=== PATIENT | male | born 1965 | race Hispanic/Latino ===

== ENCOUNTER 2021-09-03 14:22 | Emergency (ER) | payer OTHER ==
--- NOTE | 2021-09-03 16:14 | EDPHYS ---
Physician Documentation [facility] Name: Kalin Carpenter Age: 56 yrs Sex: Male : 1965 Arrival Date: 09/03/2021 Time: 14:25 Bed 23 Private MD: ED Physician Liam Lopez HPI: 09/03 16:08 This 56 yrs old Male presents to ER via Ambulatory with complaints of Chills, maxim Fatigue, Headache. 16:08 The patient complains of pain to the top of head, forehead, left frontal area and left maxim side of the back of head. The patient describes the headache as aching, constant. Onset: The symptoms/episode began/occurred 4 day(s) ago. Associated signs and symptoms: Pertinent positives: fever. Severity of symptoms: At its worst the pain was mild, in the emergency department the pain is unchanged. Historical: - Allergies: 14:40 No Known Allergies; ll1 - PMHx: 14:40 Hypothyroidism; Hypercholesterolemia; ll1 - PSHx: 14:40 None; ll1 - Immunization history:: Client reports receiving the 2nd dose of the Covid vaccine. - Social history:: Smoking status: Patient denies any tobacco usage or history of. ROS: 16:09 Constitutional: Negative for fever, chills, and weight loss, Eyes: Negative for injury, maxim pain, redness, and discharge, ENT: Negative for injury, pain, and discharge, Neck: Negative for injury, pain, and swelling, Cardiovascular: Negative for chest pain, palpitations, and edema, Abdomen/GI: Negative for abdominal pain, nausea, vomiting, diarrhea, and constipation, Back: Negative for injury and pain, : Negative for injury, bleeding, discharge, and swelling, MS/Extremity: Negative for injury and deformity, Skin: Negative for injury, rash, and discoloration, Neuro: Negative for headache, weakness, numbness, tingling, and seizure, Psych: Negative for depression, anxiety, suicide ideation, homicidal ideation, and hallucinations, Allergy/Immunology: Negative for hives, rash, and allergies, Endocrine: Negative for neck swelling, polydipsia, polyuria, polyphagia, and marked weight changes, Hematologic/Lymphatic: Negative for swollen nodes, abnormal bleeding, and unusual bruising. 16:09 Respiratory: Positive for cough, with no reported sputum. Exam: 16:09 Constitutional: This is a well developed, well nourished patient who is awake, alert, maxim and in no acute distress. Head/Face: Normocephalic, atraumatic. Eyes: Pupils equal round and reactive to light, extra-ocular motions intact. Lids and lashes normal. Conjunctiva and sclera are non-icteric and not injected. Cornea within normal limits. Periorbital areas with no swelling, redness, or edema. ENT: Nares patent. No nasal discharge, no septal abnormalities noted. Tympanic membranes are normal and external auditory canals are clear. Oropharynx with no redness, swelling, or masses, exudates, or evidence of obstruction, uvula midline. Mucous membranes moist. Neck: Trachea midline, no thyromegaly or masses palpated, and no cervical lymphadenopathy. Supple, full range of motion without nuchal rigidity, or vertebral point tenderness. No Meningismus. Chest/axilla: Normal chest wall appearance and motion. Nontender with no deformity. No lesions are appreciated. Cardiovascular: Regular rate and rhythm with a normal S1 and S2. No gallops, murmurs, or rubs. Normal PMI, no JVD. No pulse deficits. Abdomen/GI: Soft, non-tender, with normal bowel sounds. No distension or tympany. No guarding or rebound. No evidence of tenderness throughout. Back: No spinal tenderness. No costovertebral tenderness. Full range of motion. Male : Normal genitalia with no discharge or lesions. Skin: Warm, dry with normal turgor. Normal color with no rashes, no lesions, and no evidence of cellulitis. MS/ Extremity: Pulses equal, no cyanosis. Neurovascular intact. Full, normal range of motion. Neuro: Awake and alert, GCS 15, oriented to person, place, time, and situation. Cranial nerves II-XII grossly intact. Motor strength 5/5 in all extremities. Sensory grossly intact. Cerebellar exam normal. Normal gait. Psych: Awake, alert, with orientation to person, place and time. Behavior, mood, and affect are within normal limits. 16:09 Respiratory: the patient does not display signs of respiratory distress, Respirations: normal, Breath sounds: are clear throughout, Respiratory rate: 89 Vital Signs: 14:36 BP 163 / 101; Pulse 90; Resp 17; Temp 98.6; Pulse Ox 98% on R/A; Pain 0/10; ll1 15:35 BP 155 / 97; Pulse 89; Resp 18 S; Pulse Ox 99% on R/A; jd3 [place] Coma Score: 16:11 Eye Response: spontaneous(4). Verbal Response: oriented(5). Motor Response: obeys [facility] commands(6). Total: 15. MDM: 14:30 Patient medically screened. maxim 16:11 Antibiotic administration: Not indicated, the patient does not have an appreciated maxim infiltrate. Differential diagnosis: bronchitis, flu, URI, cluster headache, hypertensive headache, temporal arteritis, tension headache. Differential Diagnosis: Influenza Upper Respiratory Infection Sinusitis Pharyngitis. Data reviewed: vital signs, nurses notes, lab test result(s). Data interpreted: compliance monitor: rate is 89 beats/min, rhythm is regular, Pulse oximetry: on room air is 99 %. Counseling: I had a detailed discussion with the patient and/or guardian regarding: the historical points, exam findings, and any diagnostic results supporting the discharge/admit diagnosis, lab results. 09/03 14:37 Order name: SARS-COV-2 RT PCR (Document "Date of Onset" if Symptomatic); Complete Time: maxim 15:59 Administered Medications: 14:44 CANCELLED (physician requestt): NS 0.9% 1000 ml IV at 1 bolus Per protocol; 1000 mL ab2 bolus Disposition Summary: 09/03/21 16:13 Discharge Ordered Location: Home maxim Problem: new maxim Symptoms: have improved maxim Condition: Stable maxim Diagnosis - Coronavirus infection, unspecified maxim - Headache maxim - Fever, unspecified maxim Followup: maxim - With: Private Physician - When: 2 - 3 days - Reason: Recheck today's complaints, Continuance of care, Re-evaluation by your physician Discharge Instructions: - Discharge Summary Sheet maxim - Fever, Adult maxim - Upper Respiratory Infection, Adult maxim - Aspirin and Your Heart maxim - COVID-19 [facility] - 10 Things You Can Do to Manage Your COVID-19 Symptoms at Home - [facility] maxim - COVID-19: Quarantine vs. Isolation - [facility] maxim Forms: - Medication Reconciliation Form maxim - Thank You Letter maxim - Antibiotic Education maxim - Prescription Opioid Use [facility] Prescriptions: - Bromfed DM 2-30-10 mg/5 mL Oral syrup - take 7.5 milliliter by ORAL route every 6 hours; 160 milliliter; Refills: 0, [facility] Product Selection Permitted - Pepcid 20 mg Oral Tablet - take 1 tablet by ORAL route every 12 hours for 10 days; 20 tablet; Refills: 0, [facility] Product Selection Permitted - Zithromax Z-Maxx 250 mg Oral Tablet - take 1 tablet by ORAL route as directed for 5 days Day 1 - take two (2) tablets maxim one time. Day 2, 3, 4 , 5 take one (1) tablet once daily.; 6 tablet; Refills: 0, Product Selection Permitted Signatures: Dispatcher [employer] EDLiam Recinos MD MD cha Lewis, Lynsay RN RN ll1 Oleg Duron Corrections: (The following items were deleted from the chart) 14:43 14:37 Cardiac monitoring ordered. [facility] 14:43 14:37 EKG - Nurse/Tech ordered. [facility] 14:43 14:37 IV Saline Lock ordered. [place] [id number] 14:44 14:37 Labs collected and sent ordered. [place] [id number] 14:44 14:37 NS 0.9% 1000 ml IV at 1 bolus Per protocol; 1000 mL bolus ordered. [facility] 14:45 14:37 Oxygen Per Protocol ordered. [facility] 14:45 14:37 O2 Sat Monitoring ordered. [place] [id number] 14:49 14:37 BASIC METABOLIC PANEL+C.LAB.BRZ ordered. EDMS EDMS 14:49 14:38 HEPATIC FUNCTION+C.LAB.BRZ ordered. EDMS EDMS 14:49 14:38 MAGNESIUM+C.LAB.BRZ ordered. EDMS EDMS 14:50 14:38 PROBNP+C.LAB.BRZ ordered. EDMS EDMS 14:50 14:38 Troponin High Sensitivity+C.LAB.BRZ ordered. EDMS EDMS 14:50 14:38 Chest Single View+RAD.RAD.BRZ ordered. EDMS EDMS 16:23 14:37 CBC+H.LAB.BRZ ordered. EDMS EDMS 16:23 14:38 PROTIME (+INR)+COAG.LAB.BRZ ordered. EDMS EDMS
--- NOTE | 2021-09-03 16:14 | ER ---
Nurse's Notes [facility] Name: Kalin Carpenter Age: 56 yrs Sex: Male : 1965 Arrival Date: 09/03/2021 Time: 14:25 Bed 23 Private MD: Diagnosis: Coronavirus infection, unspecified;Headache;Fever, unspecified Presentation: 09/03 14:36 Chief complaint: Patient states: Chills, CARMONA, fatigue, cough since Tuesday. tested ll1 positive for covid, but he tested negative. No fever. Coronavirus screen: Vaccine status: Patient reports receiving the 2nd dose of the covid vaccine. Client denies travel out of the [place] in the last 14 days. chills, cough unrelated to allergies, fatigue, headache, muscle pain, Client presents with at least one sign or symptom that may indicate coronavirus-19. Standard/surgical mask placed on the client. Ebola Screen: Patient denies travel to an Ebola-affected area in the 21 days before illness onset. Initial Sepsis Screen: Does the patient meet any 2 criteria? No. Patient's initial sepsis screen is negative. Does the patient have a suspected source of infection? Yes: Productive cough/pneumonia. Risk Assessment: Do you want to hurt yourself or someone else? Patient reports no desire to harm self or others. Onset of symptoms was August 31, 2021. 14:36 Method Of Arrival: Ambulatory ll1 14:36 Acuity: PAPI 4 ll1 Historical: - Allergies: 14:40 No Known Allergies; ll1 - PMHx: 14:40 Hypothyroidism; Hypercholesterolemia; ll1 - PSHx: 14:40 None; ll1 - Immunization history:: Client reports receiving the 2nd dose of the Covid vaccine. - Social history:: Smoking status: Patient denies any tobacco usage or history of. Screenin:51 Abuse screen: Denies threats or abuse. Nutritional screening: No deficits noted. jd3 Tuberculosis screening: No symptoms or risk factors identified. Fall Risk Ambulatory Aid- None/Bed Rest/Nurse Assist (0 pts). Gait- Normal/Bed Rest/Wheelchair (0 pts) Mental Status- Oriented to own ability (0 pts). Total Elizabeth Fall Scale indicates No Risk (0-24 pts). Assessment: 14:50 General: Appears in no apparent distress. comfortable, Behavior is calm, cooperative, jd3 appropriate for age, Reports fatigue for 12-24 hours. Pain: Complains of pain in generalized aching Quality of pain is described as aching. Neuro: Level of Consciousness is awake, alert, obeys commands, Oriented to person, place, time, situation. Cardiovascular: Denies chest pain, Heart tones present Capillary refill < 3 seconds Patient's skin is warm and dry. Respiratory: Reports cough that is non-productive, persistent Airway is patent Respiratory effort is even, unlabored, Respiratory pattern is regular, symmetrical, Breath sounds are clear bilaterally. GI: No signs and/or symptoms were reported involving the gastrointestinal system. : No signs and/or symptoms were reported regarding the genitourinary system. EENT: No signs and/or symptoms were reported regarding the EENT system. Derm: Skin is intact, Skin is dry, Skin is normal, Skin temperature is warm. Musculoskeletal: Circulation, motion, and sensation intact. Range of motion: intact in all extremities. 15:35 Reassessment: Patient appears in no apparent distress at this time. No changes from jd3 previously documented assessment. Patient and/or family updated on plan of care and expected duration. Pain level reassessed. Patient is alert, oriented x 3, equal unlabored respirations, skin warm/dry/pink. 16:33 Reassessment: Patient appears in no apparent distress at this time. No changes from jd3 previously documented assessment. Patient and/or family updated on plan of care and expected duration. Pain level reassessed. Patient is alert, oriented x 3, equal unlabored respirations, skin warm/dry/pink. Vital Signs: 14:36 BP 163 / 101; Pulse 90; Resp 17; Temp 98.6; Pulse Ox 98% on R/A; Pain 0/10; ll1 15:35 BP 155 / 97; Pulse 89; Resp 18 S; Pulse Ox 99% on R/A; jd3 [place] Coma Score: 16:11 Eye Response: spontaneous(4). Verbal Response: oriented(5). Motor Response: obeys maxim commands(6). Total: 15. ED Course: 14:25 Patient arrived in ED. ds1 14:30 Liam Lopez MD is Attending Physician. maxim 14:36 Arm band placed on Patient placed in an exam room, on a stretcher. ll1 14:38 Triage completed. ll1 14:50 Ángel Cunha, RN is Primary Nurse. jd3 14:51 Patient has correct armband on for positive identification. Bed in low position. Call jreinier light in reach. Side rails up X 1. Pulse ox on. NIBP on. 14:52 COVID swab sent to lab. jd3 16:33 No provider procedures requiring assistance completed. Patient did not have IV access j during this emergency room visit. Administered Medications: 14:44 CANCELLED (physician requestt): NS 0.9% 1000 ml IV at 1 bolus Per protocol; 1000 mL ab2 bolus Outcome: 16:13 Discharge ordered by . maxim 16:33 Discharged to home ambulatory, with family. jd3 16:33 Condition: stable 16:33 Discharge instructions given to patient, Instructed on discharge instructions, follow up and referral plans. medication usage, Demonstrated understanding of instructions, follow-up care, medications, Prescriptions given X 3. 16:33 Patient left the ED. j Signatures: Liam Lopez MD MD cha Sanford, Demi ds1 Ángel Cunha, RN RN Gisell Morris RN RN ll1 Oleg Duron ab2
[2021-09-03 17:42] VITALS: TEMP 98.6
[2021-09-03 17:43] VITALS: BP 155/97; O2SAT 99
== END 2021-09-03 16:33 | disposition home or self-care (01) ==
LOC: ER 14:22
DX: U07.1 COVID-19 (principal); R51.9 Headache, unspecified
CPT/HCPCS: 99283; U0003